=== PATIENT | female | born 1965 | race Caucasian/White ===

== ENCOUNTER → 2020-11-03 | Outpatient (CLI) | payer MEDICARE ==
[2020-11-03 15:10] VITALS: BP 142/86; PULSE 52; RESP 16; TEMP 97.5; BMI 23.8
--- NOTE | 2020-11-03 17:50 | P.BASOAP ---
Subjective Progress Note Date: 11/03/20 Principal diagnosis: Morbid obesity Patient with poor follow-up. Underwent lap band placement 2002. Patient had been maintaining her weight around 125 but recently gained about 20 pounds. Her restriction is less. Was not sure how much fluid was in her band. Patient has a 4 mL band. Objective - Vital Signs Vital signs: Vital Signs Temp 97.5 F L 11/03/20 15:06 Pulse 52 L 11/03/20 15:06 Resp 16 11/03/20 15:06 BP 142/86 11/03/20 15:06 Pulse Ox Intake & Output 11/02/20 11/03/20 11/03/20 18:59 06:59 18:59 Weight 67.132 kg - Exam Abdomen: Soft, nontender, nondistended Assessment/Plan (1) Morbid obesity Narrative/Plan: Patient with history of morbid obesity. Doing well after previous lap band placement. Patient would like an adjustment. By history concerned about possible malfunctioning LAP-BAND port. The patient's lap band port was palpated. The site was aseptically prepped. The Kaufman needle was advanced into the port. A total of 0.3 ml of fluid was added. Patient had at least 2.5 cc of fluid in her band when checked. Total volume to be confirmed at this visit. Pressure was held and a sterile dressing was applied. Plan: Date: 11/03/20 Initial Weight: 113.398 kg Initial BMI: 40.3 Current Weight: 67.132 kg Current BMI: 23.8 Type of Surgery: Adjustable Gastric Banding Total Volume in Band: 4 Previous Volume: Volume Removed: Volume Added: 3 Band Size:
== END | disposition home or self-care (01) ==
LOC: BARWHC3 14:40
PROVIDERS: ATTEND Surgery
DX: E66.01 Morbid (severe) obesity due to excess calories (principal); Z46.51 Encounter for fitting and adjustment of gastric lap band; Z68.23 Body mass index [BMI] 23.0-23.9, adult
CPT/HCPCS: 99212

== ENCOUNTER → 2020-11-17 | Outpatient (CLI) | payer MEDICARE ==
[2020-11-17 14:31] VITALS: BP 137/69; PULSE 56; RESP 16; TEMP 97.9; BMI 23.3
--- NOTE | 2020-11-17 15:19 | P.BASOAP ---
Subjective Progress Note Date: 11/17/20 Principal diagnosis: Morbid obesity Patient here today after recent LAP-BAND adjustment. Says she does not feel any change in restriction. At the time of her last visit it was difficult to tell much fluid was in her band. Additionally patient states she had her band replaced at some point in the past which was not discussed last week. Unsure how much fluid her band holds. Objective - Vital Signs Vital signs: Vital Signs Temp 97.9 F 11/17/20 14:28 Pulse 56 L 11/17/20 14:28 Resp 16 11/17/20 14:28 BP 137/69 11/17/20 14:28 Pulse Ox Intake & Output 11/16/20 11/17/20 11/17/20 18:59 06:59 18:59 Weight 65.771 kg - Exam Abdomen: Soft, nontender, nondistended Assessment/Plan (1) Morbid obesity Narrative/Plan: Patient interested in having more fluid to her band. A 6 mL syringe was preloaded with 1 mL. Using a Kaufman needle the band was accessed. The patient had over 7 mL of fluid in the syringe after aspiration. The 1 mL that was in this range was added. Patient now has 7+ cc in her band. We'll use a larger syringe next time if additional feels necessary to evaluate for fluid volume. Plan: Date: 11/17/20 Initial Weight: 113.398 kg Initial BMI: 40.3 Current Weight: 65.771 kg Current BMI: 23.3 Type of Surgery: Total Volume in Band: 8 Previous Volume: Volume Removed: Volume Added: 1 Band Size:
== END ==
LOC: BARWHC3 13:45
PROVIDERS: ATTEND Surgery
DX: E66.01 Morbid (severe) obesity due to excess calories (principal); Z68.23 Body mass index [BMI] 23.0-23.9, adult
CPT/HCPCS: 99212